=== PATIENT | male | born 1990 | race Caucasian/White ===

== ENCOUNTER 2017-09-08 02:12 | Observation (INO) ==
[2017-09-08] MEDS ORDERED: Ondansetron 4 MG/2 ML VIAL IVP ONE (02:33)
[2017-09-08] MEDS ORDERED: 0.9 % Sodium Chloride 1,000 ML IVC ONE (02:33)
--- NOTE | 2017-09-08 02:50 | Emergency Department Note ---
Disposition Clinical Impression: Chemical pneumonitis, Chronic abdominal pain Nausea & vomiting Qualifiers: Vomiting type: unspecified Vomiting Intractability: non-intractable Qualified Code(s): R11.2 - Nausea with vomiting, unspecified Disposition: Admitted As Inpatient Condition: Good Referrals: David Dailey MD [Primary Care Provider] - General Adult HPI - General Chief complaint: ED Abdominal Pain Stated complaint: vomiting Time Seen by Provider: 09/08/17 02:18 Source: patient Limitations: no limitations Nursing Notes Reviewed: Yes Vital Signs Reviewed: Yes - History of Present Illness HPI Narrative: 27 y/o male with a long history of abdominal pain. He reports he is being seen by gastroenterology and recently had a colonoscopy. He has also had a cholecystectomy. He denies knowing the cause of his longstanding abdominal pain. He presents today due to 3 hours of nausea, vomiting, and abdominal pain. He reports pain in the middle of his abdomen and vomiting every 10-15 minutes. No fever. He does have chronic diarrhea. PMH of HTN, and chronic pain. Radiation: non-radiation Pain Severity: severe Pain Scale: 8 Consistency: intermittent Improves with: nothing Worsens with: nothing Associated symptoms: Reports: denies other symptoms Treatments Prior to Arrival: none - Related Data Home Medications Medication Instructions Recorded Confirmed Carvedilol [Coreg] 12.5 mg PO BID 08/11/15 02/04/17 Cyanocobalamin (Vitamin B-12) 1,000 mcg PO DAILY 08/11/15 02/04/17 [Vitamin B-12] Lisinopril/Hydrochlorothiazide 1 each PO BID 08/11/15 02/04/17 [Zestoretic 20-12.5 mg Tablet] Cyanocobalamin (B-12) [Vitamin B12] 1,000 mcg IM AD 10/13/16 02/04/17 Folic Acid 1 mg PO DAILY 10/13/16 02/04/17 Gabapentin [Neurontin] 300 mg PO QID 10/13/16 02/04/17 Promethazine [Phenergan] 25 mg PO TID PRN 10/13/16 02/04/17 clonazePAM [Klonopin] 0.5 mg PO BID 10/13/16 02/04/17 Previous Rx's Medication Instructions Recorded Docusate [Colace] 100 mg PO BID #30 capsule 09/25/17 Allergies Allergy/AdvReac Type Severity Reaction Status Date / Time amlodipine [From Norvasc] Allergy Mild SWELLING Verified 06/09/17 21:41 LEGS metoclopramide [From Reglan] Allergy Mild HIVES Verified 06/09/17 21:41 SHORTNESS OF BREATH ketorolac [From Toradol] AdvReac Mild Migraine Verified 06/09/17 21:41 morphine AdvReac Mild Headache Verified 06/09/17 21:41 All systems ED: reviewed and negative except as stated. Constitutional: Denies: fever ENT ED: Denies: throat pain Cardiovascular: Denies: chest pain Respiratory: Denies: cough Gastrointestinal: Reports: abdominal pain, nausea, vomiting, diarrhea Musculoskeletal: Denies: back pain Integumentary: Denies: rash Neurological: Denies: headache Endocrine: Denies: fatigue Past Medical History - Past Medical History Medical history: Reports: hypertension Surgical history: Reports: cholecystectomy Psychiatric history: Reports: anxiety - Social History Smoking Status: Never smoker Smokeless Tobacco Status: No Alcohol use: Reports: none Drug use: Reports: none Physical Exam - General Limitations: no limitations General appearance: alert - Head Head exam: atraumatic - Eye Eye exam: Present: normal appearance, PERRL - ENT ENT exam: normal exam, normal oropharynx - Neck Neck exam: Present: normal inspection - Chest Chest inspection: Present: normal inspection - Respiratory Respiratory exam: Present: normal lung sounds bilaterally. Absent: respiratory distress - Cardiovascular Cardiovascular exam: Present: regular rate, normal rhythm - Abdominal Exam Abdominal exam: Present: soft, tenderness (mild mid abdomen tenderness. No guarding or rebound. No distention.) - Extremities Exam Extremities exam: Present: normal inspection - Neurological Exam Neurological exam: Present: alert, oriented X3 - Skin Skin exam: Present: warm, dry Course Course Narrative: Mild tachycardia, will give IVF and treat symptoms. Patient vomited while getting medications for nausea. He started coughing and began to desaturate into the 70's. Likely aspiration. Was placed on non- rebreather and still was hypoxic in the low 80's. Lungs developed wheezing. Gave solu-medrol, duonebs, and placed on Bipap. Positive pressure helped immensely. He feels much better. Wheezing is much improved. CXR does not show infiltrate. Due to him still being on bipap, will place in observation. His symptoms likely due to chemical pneumonitis. No current need for antibiotics unless infection becomes suspected. Vital Signs Temperature 97.7 F 09/08/17 02:13 Pulse Rate 112 09/08/17 02:13 Respiratory Rate 20 09/08/17 02:13 Blood Pressure 127/92 09/08/17 02:13 O2 Sat by Pulse Oximetry 98 09/08/17 02:13 Temperature 97.7 F 09/08/17 02:13 Pulse Rate 91 09/08/17 04:30 Respiratory Rate 17 09/08/17 03:33 Blood Pressure 127/90 09/08/17 04:30 O2 Sat by Pulse Oximetry 98 09/08/17 04:30 Oxygen Delivery Oxygen Delivery Bipap Medical Decision Making - Medical Records Medical records reviewed: Yes I reviewed the patient's medical records. - Lab Data Lab results reviewed: Yes I reviewed the patient's lab results. Result diagrams: 09/08/17 02:46 09/08/17 02:46 Lab Results 09/08/17 09/08/17 Range/Units 02:46 02:46 WBC 12.2 H (4.3-11.1) K/mcL RBC 5.71 H (4.19-5.50) M/mcL Hgb 16.0 (12.9-16.9) g/dL Hct 46.1 (37.5-50.1) % MCV 80.7 L (83.0-100.0) fL MCH 28.0 (28.0-33.3) pg MCHC 34.7 (31.6-35.5) g/dL RDW 12.2 (11.5-14.5) % Plt Count 362 (140-400) K/mcL MPV 9.0 L (9.4-12.4) fL Immature Gran % 0.4 (0-4) % Seg Neutrophils % 82.7 % Lymphocytes % 10.7 % Monocytes % 5.2 % Eosinophils % 0.8 % Basophils % 0.2 % Neutrophils # 10.1 H (1.6-8.9) K/mcL Lymphocytes # 1.3 (0.6-4.6) K/mcL Monocytes # 0.6 (0.0-1.3) K/mcL Eosinophils # 0.1 (0.0-0.6) K/mcL Basophils # 0.0 (0.0-0.2) K/mcL Sodium 137 (136-145) mEq/L Potassium 3.8 (3.5-5.1) mEq/L Chloride 106 (98-107) mEq/L Carbon Dioxide 23 (23-29) mEq/L BUN 14 (6-20) mg/dL Creatinine 0.84 (0.70-1.30) mg/dL Est GFR ( Amer) > 60 (> 60) Est GFR (Non-Af Amer) > 60 (> 60) BUN/Creatinine Ratio 17 (6-26) Glucose 117 H (70-105) mg/dL Calculated Osmolality 286 (280-300) Calcium 9.3 (8.6-10.3) mg/dL Total Bilirubin 0.9 (0.3-1.0) mg/dL Direct Bilirubin 0.2 (0.0-0.2) mg/dL Indirect Bilirubin 0.7 (0.0-1.2) mg/dL AST 18 (13-39) Units/L ALT 28 (7-52) Units/L Alkaline Phosphatase 63 (34-104) Units/L Serum Total Protein 7.3 (6.4-8.9) g/dL Albumin 4.6 (3.5-5.7) g/dL Globulin 2.7 (2.4-3.5) g/dL Albumin/Globulin Ratio 1.7 (1.1-2.2) Lipase 26 (11-82) Units/L - Radiology Data Radiology results reviewed: Yes I reviewed the patient's radiology results. Attestation Statement - Attestation Attestation: I, Jose Lyons, examined this patient and my medical decision-making was reviewed with the TRUCK CLEANER/PA/Advanced Practice Nurse/Resident Physician. I agree with the documented findings, disposition and treatment plan as described except to the extent set forth below. 27-year-old male presents emergency Department with concerns of abdominal pain and vomiting. Patient has a long history of abdominal pain however he states his vomiting has become worse over the past few hours prior to arrival. During his evaluation the patient received a CT of his abdomen and pelvis. Antibiotics were ordered however patient vomited and likely aspirated and became hypoxic. Patient had mild wheezing present in his right lung field. Chest x-ray did not show evidence of acute abnormality however I am concerned about a possible chemical pneumonitis from vomiting and we will admit to the hospital for further care and evaluation. CT of his abdomen and pelvis did not show evidence of acute surgical pathology.
[2017-09-08 02:53] LABS: Basophils % 0.2 %; Eosinophils # 0.1 K/mcL (0.0-0.6); Eosinophils % 0.8 %; Hematocrit 46.1 % (37.5-50.1); Immature Granulocytes % 0.4 % (0-4); Lymphocytes # 1.3 K/mcL (0.6-4.6); Lymphocytes % 10.7 %; Mean Corpuscular HGB Conc 34.7 g/dL (31.6-35.5); Mean Corpuscular Volume 80.7 fL (83.0-100.0); Monocytes # 0.6 K/mcL (0.0-1.3); Monocytes % 5.2 %; Neutrophils # 10.1 K/mcL (1.6-8.9); Platelet Count 362 K/mcL (140-400); Red Blood Count 5.71 M/mcL (4.19-5.50); Red Cell Distribution Width 12.2 % (11.5-14.5); Segmented Neutrophils % 82.7 %
[2017-09-08 03:10] LABS: Alanine Aminotransferase 28 Units/L (7-52); Albumin 4.6 g/dL (3.5-5.7); Albumin/Globulin Ratio 1.7 (1.1-2.2); Alkaline Phosphatase 63 Units/L (34-104); Aspartate Amino Transferase 18 Units/L (13-39); BUN/Creatinine Ratio 17 (6-26); Bilirubin,Direct 0.2 mg/dL (0.0-0.2); Bilirubin,Indirect 0.7 mg/dL (0.0-1.2); Bilirubin,Total 0.9 mg/dL (0.3-1.0); Blood Urea Nitrogen 14 mg/dL (6-20); Calcium 9.3 mg/dL (8.6-10.3); Carbon Dioxide 23 mEq/L (23-29); Chloride 106 mEq/L (98-107); Globulin 2.7 g/dL (2.4-3.5); Glucose 117 mg/dL (70-105); Lipase 26 Units/L (11-82); Osmolality,Calculated 286 (280-300); Potassium 3.8 mEq/L (3.5-5.1); Sodium 137 mEq/L (136-145); Total Protein 7.3 g/dL (6.4-8.9); eGFR For African Americans > 60 (> 60); eGFR For Non-African Americans > 60 (> 60)
[2017-09-08] MEDS ORDERED: Ipratropium/Albuterol Neb 3 ML IH ONE (03:21)
[2017-09-08] MEDS ORDERED: methylPREDNISolone 125 MG/2 ML VIAL IVP ONE (03:26)
[2017-09-08] MEDS ORDERED: Naloxone 0.4 MG/ML INJ IVP PRN (05:26)
[2017-09-08] MEDS ORDERED: Ondansetron ODT 4 MG TAB.RAPDIS SL PRN (05:26)
[2017-09-08] MEDS ORDERED: 0.9 % Sodium Chloride 1,000 ML IVC SCH ×2 (05:45→07:00)
--- NOTE | 2017-09-08 05:56 | Internal Med History&Physical ---
<Bert Kumari - Last Filed: 09/08/17 06:19> Date of Encounter: 09/08/17 Time of Encounter: 04:30 Assessment and Plan (1) Aspiration into airway Current visit: Yes Status: Acute Initial CXR negative Will recheck at 12 hrs (1600) Started Unasyn 3g q6hr Supplemental O2 as necessary, currently stable on nasal cannula Qualifiers: Encounter type: initial encounter Qualified Code(s): T17.908A - Unspecified foreign body in respiratory tract, part unspecified causing other injury, initial encounter (2) Chemical pneumonitis Current visit: Yes Status: Acute See plan of care above (3) Nausea & vomiting Current visit: Yes Status: Acute Zofran and phergan ordered Ordered 2nd liter of normal saline due to poor oral intake Will check UDS for possible cannabinoid hyperemesis Qualifiers: Vomiting type: unspecified Vomiting Intractability: non-intractable Qualified Code(s): R11.2 - Nausea with vomiting, unspecified (4) Chronic abdominal pain Current visit: Yes Status: Acute CT abd/pelv negative Ordered lactobacillus po BID Internal Medicine - H&P: HPI Chief complaint: Abdominal Pain, Aspiration Admitted From: Home Plans for Post Hospital Care: Home History of present illness: Mr. Horne is a 27 year old male who presented with 3 hours of nausea and vomiting q10 - 15 minutes. He states that the vomitus was "pure bile" by the time he decided to present to the ER. He has a long history of abdominal pain, nausea, and (at least 2 years) for which he has been worked up extensively, including EGD, colonoscopy, gastric emptying study, and numerous serologies, including those for IBD. His next appointment with GI was scheduled for October. Patient admitted chills, but denied fever, myalgias, flu-like symptoms, and sick contacts. While in the emergency department, the patient was about to receive antiemetics when suddenly vomited and experienced acute dyspnea. His saturations dropped into the 70s and he was placed on BiPAP, which improved both his subjective SOB and his hypoxia. Initial CXR was negative. He has past medical history of HTN and generalized anxiety disorder. Patient denies tobacco, alcohol, and drug use. Past Med Surg Social Fam HX - Past Medical History Medical history: hypertension Psychiatric history: anxiety - Past Surgical History Surgical History: cholecystectomy - Social History Smoking Status: Never smoker Smokeless Tobacco Status: No Alcohol use: none Drug use: none Internal Medicine - H&P: Meds Carvedilol [Coreg] 12.5 mg PO BID 08/11/15 [History] Cyanocobalamin (Vitamin B-12) [Vitamin B-12] 1,000 mcg PO DAILY 08/11/15 [ History] Lisinopril/Hydrochlorothiazide [Zestoretic 20-12.5 mg Tablet] 1 each PO BID [History] Cyanocobalamin (B-12) [Vitamin B12] 1,000 mcg IM Q1W 10/13/16 [History] Folic Acid 1 mg PO DAILY 10/13/16 [History] Gabapentin [Neurontin] 300 mg PO QID 10/13/16 [History] Promethazine [Phenergan] 25 mg PO TID PRN 10/13/16 [History] clonazePAM [Klonopin] 0.5 mg PO BID 10/13/16 [History] Docusate [Colace] 100 mg PO BID #30 capsule 05/08/17 [Rx] 3 Allergy/AdvReac Type Severity Reaction Status Date / Time amlodipine [From Norvasc] Allergy Mild SWELLING Verified 06/09/17 21:41 LEGS metoclopramide [From Reglan] Allergy Mild HIVES Verified 06/09/17 21:41 SHORTNESS OF BREATH ketorolac [From Toradol] AdvReac Mild Migraine Verified 06/09/17 21:41 morphine AdvReac Mild Headache Verified 06/09/17 21:41 All Systems PM: A 10-system review of systems was performed and is negative for pertinent findings except as documented above in the HPI. Review of systems: as per HPI - Constitutional Vitals: Temp Pulse Resp BP Pulse Ox 98.7 F 90 16 135/89 97 09/08/17 05:25 09/08/17 05:25 09/08/17 05:25 09/08/17 05:25 09/08/17 05:25 General appearance: Present: cooperative, A&O X 3, pleasant, no acute distress, answers questions appropriately - Head Head exam: Present: atraumatic, normal inspection, normocephalic - ENT ENT exam: Present: mucous membranes moist - Neck Neck exam general surgery: Present: trachea midline - Respiratory Respiratory exam: Present: CTAB. Absent: accessory muscle use, respiratory distress, rhonchi - Cardiovascular Cardiovascular exam: Present: +S1, +S2 Additional comments: Borderline tachycardia - GI/Abdominal GI/Abdominal exam: Present: normal bowel sounds, soft, tenderness (to deep palpation in the umbilical area, all 4 quadrants otherwise nontender), no peritoneal signs. Absent: distended, guarding - Extremities Exam Extremities exam: Absent: pedal edema - Psychiatric Psychiatric exam: Present: normal affect, normal mood. Absent: agitated, anxious - Skin Skin exam: Present: dry, warm Internal Med - H&P Results - Labs CBC & Chem 7: 09/08/17 02:46 09/08/17 02:46 <Roxana Bateman - Last Filed: 09/08/17 06:30> Date of Encounter: 09/08/17 Time of Encounter: 05:20 Internal Medicine - H&P: HPI History of present illness: Mr. Horne is a 27 year old male All Systems PM: A 10-system review of systems was performed and is negative for pertinent findings except as documented above in the HPI. - Constitutional Vitals: Temp Pulse Resp BP Pulse Ox 98.7 F 90 16 135/89 97 09/08/17 05:25 09/08/17 05:25 09/08/17 05:25 09/08/17 05:25 09/08/17 05:25 Internal Med - H&P Results - Labs CBC & Chem 7: 09/08/17 02:46 09/08/17 02:46 - Attending Attestation I examined this patient and my medical decision-making was reviewed with the Resident Physician, Bert Kumari. I agree with the documented findings, disposition and treatment plan as described except to the extent set forth below. 27-year-old male patient with history of chronic abdominal pain and chronic diarrhea with extensive outpatient workup finding no clear etiology presented to the ER with complaints of intractable nausea and vomiting the patient reports vomiting Bile. He also has significant abdominal pain at a tender spot just above his umbilicus. While being given medications in the ER, he developed an episode of emesis and appears to have aspirated. His oxygen saturations dropped to the low 80s and he was placed on nonrebreather and then BiPAP. He was also given breathing treatments with improvement in his symptoms. He is now back on nasal cannula and feeling much better. He continues to report nausea and abdominal pain. On examination, patient has mild tenderness in the periumbilical region. Breath sounds are normal. Heart sounds are normal. Chest x-ray shows no acute infiltrate. Patient does have mild leukocytosis. Aspiration pneumonitis: The patient had an episode of aspiration with possible pneumonitis. Chest x-ray does not show any infiltrate. We will treat empirically with antibiotics. Repeat chest x-ray later today. If no clear infiltrate, may DC antibiotics at that time. Continue O2 supplementation as needed. Abdominal pain: Chronic in nature. Patient being evaluated at [facility]. Will treat symptomatically. Patient may have IBS. Intractable nausea and vomiting: Will treat with antiemetics. DVT prophylaxis with SCDs and subcutaneous heparin.
[2017-09-08] MEDS: Ampicillin/Sulbactam 3,000 MG in 0.9 % Sodium Chloride Mini Bag 100 ML IVPB SCH ×2 (06:00→14:39)
--- NOTE | 2017-09-08 06:13 | Event Note ---
Date of Encounter: 09/08/17 Time of Encounter: 05:20 I examined this patient and my medical decision-making was reviewed with the Resident Physician, Bert Kumari. I agree with the documented findings, disposition and treatment plan as described except to the extent set forth below. 27-year-old male patient with history of chronic abdominal pain and chronic diarrhea with extensive outpatient workup finding no clear etiology presented to the ER with complaints of intractable nausea and vomiting the patient reports vomiting Bile. He also has significant abdominal pain at a tender spot just above his umbilicus. While being given medications in the ER, he developed an episode of emesis and appears to have aspirated. His oxygen saturations dropped to the low 80s and he was placed on nonrebreather and then BiPAP. He was also given breathing treatments with improvement in his symptoms. He is now back on nasal cannula and feeling much better. He continues to report nausea and abdominal pain. On examination, patient has mild tenderness in the periumbilical region. Breath sounds are normal. Heart sounds are normal. Chest x-ray shows no acute infiltrate. Patient does have mild leukocytosis. Aspiration pneumonitis: The patient had an episode of aspiration with possible pneumonitis. Chest x-ray does not show any infiltrate. We will treat empirically with antibiotics. Repeat chest x-ray later today. If no clear infiltrate, may DC antibiotics at that time. Continue O2 supplementation as needed. Abdominal pain: Chronic in nature. Patient being evaluated at [facility]. Will treat symptomatically. Patient may have IBS. Intractable nausea and vomiting: Will treat with antiemetics. DVT prophylaxis with SCDs and subcutaneous heparin.
[2017-09-08 08:30] LABS: Amphetamine Screen,Urine Negative ng/mL (Cutoff=1000); Barbiturate Screen,Urine Negative ng/mL (Cutoff=200); Benzodiazepines Screen,Urine Negative ng/mL (Cutoff=200); Cannabinoid Screen,Urine Negative ng/mL (Cutoff = 50); Cocaine Screen,Urine Negative ng/mL (Cutoff= 300); Opiate Screen,Urine Negative ng/mL (Cutoff=300); Phencyclidine Screen,Urine Negative ng/mL (Cutoff=25)
[2017-09-08] MEDS ORDERED: Lactobacillus 1 EACH CAP.SPRINK PO SCH (09:00)
[2017-09-08] MEDS ORDERED: clonazePAM 0.5 MG TABLET PO SCH (15:15)
--- NOTE | 2017-09-08 16:28 | Discharge Summary ---
<Guy Ruiz - Last Filed: 09/08/17 16:20> Date of Encounter: 09/08/17 Time of Encounter: 16:21 - Discharge Diagnosis (1) Chemical pneumonitis Priority: Secondary Status: Acute (2) Nausea & vomiting Priority: Primary Status: Acute Qualifiers: Vomiting type: unspecified Vomiting Intractability: non-intractable Qualified Code(s): R11.2 - Nausea with vomiting, unspecified (3) Chronic abdominal pain Priority: Secondary Status: Acute (4) Aspiration into airway Priority: Secondary Status: Acute Qualifiers: Encounter type: initial encounter Qualified Code(s): T17.908A - Unspecified foreign body in respiratory tract, part unspecified causing other injury, initial encounter - Discharge Medications Prescriptions: Ondansetron [Zofran] 4 mg PO Q8HR 30 Days #90 tablet Amoxicillin/Clavulanate [Augmentin] 875 mg PO BIDWM 10 Days #20 tablet Home Medications: Carvedilol [Coreg] 12.5 mg PO BID 08/11/15 [History] Cyanocobalamin (Vitamin B-12) [Vitamin B12] 1,000 mcg PO DAILY 08/11/15 [History ] Lisinopril/Hydrochlorothiazide [Zestoretic 20-12.5 mg Tablet] 1 each PO BID [History] Cyanocobalamin (B-12) [Vitamin B12] 1,000 mcg IM Q1W 10/13/16 [History] Folic Acid 1 mg PO DAILY 10/13/16 [History] Gabapentin [Neurontin] 300 mg PO QID 10/13/16 [History] Promethazine [Phenergan] 25 mg PO TID PRN 10/13/16 [History] clonazePAM [Klonopin] 0.5 mg PO BID 10/13/16 [History] Docusate [Colace] 100 mg PO BID #30 capsule 05/08/17 [Rx] Amoxicillin/Clavulanate [Augmentin] 875 mg PO BIDWM 10 Days #20 tablet 09/08/17 [Rx] Ondansetron [Zofran] 4 mg PO Q8HR 30 Days #90 tablet 09/08/17 [Rx] Allergies/Adverse Reactions: 3 Allergy/AdvReac Type Severity Reaction Status Date / Time amlodipine [From [facility]] Allergy Mild SWELLING Verified 06/09/17 21:41 LEGS metoclopramide [From Reglan] Allergy Mild HIVES Verified 06/09/17 21:41 SHORTNESS OF BREATH ketorolac [From Toradol] AdvReac Mild Migraine Verified 06/09/17 21:41 morphine AdvReac Mild Headache Verified 06/09/17 21:41 Date of admission: 09/08/17 04:34 Primary care physician: David Dailey MD - Patient Status Disposition: Home, Self-Care Condition: Good Functional capacity at discharge: independent ambulation Overall status at discharge: patient is back to baseline - Discharge Instructions Instructions: Amoxicillin/Clavulanate Potassium (By mouth), Ondansetron (By mouth), Aspiration Pneumonia (DC), Aspiration Pneumonia (GEN) Follow Up With: David Dailey MD [Primary Care Provider] - (WED REQUEST WAS MADE, THE OFFICE SHOULD CALL YOU WITH APPOINTMENT DATE AND TIME, IF YOU DONT HERE FROM THEM BY MONDAY, PLEASE CALL OFFICE TO MAKE AN APPOINTMENT ) Additional Instructions: follow up with PCP in 1 week. - Diet and Activity Activity: increase activity as tolerated Diet: advance to your usual diet Hospital course: Mr Horne is a 27 yo M with a pmh of anxiety, HTN, cholecystectomy and long history of abdominal pain, nausea, and has been extensively worked up including EGD, colonoscopy, gastric empything study, and numerous serologies for IBD presented to [place] ED with 3 hour history of nausea and vomiting x10. In the emergency department patient experienced acute dyspnea while receivng antiemetics. His SpO2 dropped in the 70s and BiPAP was placed which improved his SOB and hypoxia. Initial CXR in ED was negative, but patient was believed to have aspirated. Patient was treated empirically with Unasyn. Patient no longer had SOB in the morning. Follow up CXR taken on day 2 of hospitalization remained negative. Patient believed Phenergan and Zofran controlled his nausea and vomiting as well. Patient discharged with prescription for Zofran and augmentin. Patient recommended to call [facility] to move his GI evaluation up, as his current appointment is not until October. Time spent discussing smoking cessation with patient: more than 10 minutes - Time Spent with Patient Total time spent providing and/or coordinating discharge services: Greater than 30 minutes - Constitutional Vitals: Temp Pulse Resp BP Pulse Ox 98.2 F 96 16 116/75 94 09/08/17 11:45 09/08/17 11:45 09/08/17 11:45 09/08/17 11:45 09/08/17 11:45 General appearance: Present: cooperative, A&O X 3, pleasant, no acute distress, answers questions appropriately - Respiratory Respiratory exam: Present: CTAB. Absent: accessory muscle use, rales, rhonchi, wheezes - Cardiovascular Cardiovascular exam: Present: RRR, +S1, +S2. Absent: diastolic murmur, gallop, rubs, systolic murmur - Extremities Exam Extremities exam: Present: warm, radial pulses palpable and symmetrical. Absent : calf tenderness, cyanotic, pedal edema - Psychiatric Psychiatric exam: Present: normal affect, normal mood <José Miguel Martinez - Last Filed: 09/08/17 18:26> Date of Encounter: 09/08/17 - Discharge Diagnosis (1) Chemical pneumonitis Priority: Primary Status: Acute (2) Aspiration into airway Priority: Primary Status: Acute Qualifiers: Encounter type: initial encounter Qualified Code(s): T17.908A - Unspecified foreign body in respiratory tract, part unspecified causing other injury, initial encounter (3) Nausea & vomiting Priority: Secondary Status: Chronic Qualifiers: Vomiting type: unspecified Vomiting Intractability: non-intractable Qualified Code(s): R11.2 - Nausea with vomiting, unspecified (4) Chronic abdominal pain Status: Chronic Date of admission: 09/08/17 04:34 Primary care physician: David Dailey MD Hospital course: Mr. Horne is a 27 year old male - Time Spent with Patient Total time spent providing and/or coordinating discharge services: - Constitutional Vitals: Temp Pulse Resp BP Pulse Ox 98.4 F 92 16 133/89 94 09/08/17 16:00 09/08/17 16:00 09/08/17 16:00 09/08/17 16:00 09/08/17 11:45 - Attending Attestation I examined this patient and my medical decision-making was reviewed with the Resident Physician on 09/08/17. I agree with the documented findings, disposition and treatment plan as described except to the extent set forth below. Mr Horne has been in observation for acute aspiration and pneumonitis. He is tolerating a diet currently. His repeat CXR is negative. He is afebrile. He is ready for discharge home. Exam alert. Comfortable Mucus membranes dry Heart reg No wheeze, rales rhonchi Abd soft Plan D/C home today.
[2017-09-08 16:58] VITALS: BP 133/89
[2017-09-08] MEDS ORDERED: Gabapentin 300 MG CAPSULE PO SCH (17:00)
[2017-09-08] MEDS ORDERED: *HR* Heparin 5,000 UNIT/ML VIAL SQ SCH (18:00)
== END 2017-09-08 18:36 | disposition home or self-care (01) ==
LOC: 2NENU 02:12 → EMEROO 02:12 → 2NENU 04:46
PROVIDERS: ADMIT Internal Medicine; ATTEND Internal Medicine